=== PATIENT | female | born 1990 | race Two or more races ===

== ENCOUNTER 2017-01-15 21:45 | Emergency (ER) | payer BC ==
[~2017-01-15] VITALS: Ht 154.9 cm; Wt 63.5 kg
--- NOTE | 2017-01-15 22:00 | NUR ---
PT BIB SELF C/O "ASTHMA CAME BACK" X2 DAYS. PT REPORTS SOB, WITH MILD DISTRESS. LUNGS CLEAR. A1, UNKNOWN ELIGIO. SKIN WARM NONDIAPHORETIC. VSS ON ROOM AIR.
[2017-01-15] MEDS ORDERED: ALBUTEROL FS 2.5 MG/0.5 ML VIAL.NEB ONE (22:09)
[2017-01-15] MEDS ORDERED: ALBUTEROL FS 2.5 MG/0.5 ML VIAL.NEB NEB ONE (22:30)
--- NOTE | 2017-01-15 22:42 | NUR ---
BREATHING TX COMPLETED. PT STATES SHE FEELS "AT LEAST 80% BETTER". SPEAKING WITHOUT DIFFICULTY. RESP EVEN UNLABORED. VSS.
--- NOTE | 2017-01-15 23:06 | NUR ---
Patient discharged to home in stable condition. Written and verbal after care instructions given. Patient verbalizes understanding of instruction. NAD NOTED. RESP EVEN UNLABORED.
[2017-01-15 23:07] VITALS: BP 120/64
== END 2017-01-15 23:08 | disposition home or self-care (01) ==
LOC: ER 21:54
DX: J45.909 Unspecified asthma, uncomplicated (principal)
CPT/HCPCS: A4606; Z7610